=== PATIENT | female | born 1965 | race Caucasian/White ===

== ENCOUNTER → 2017-12-07 | Outpatient (CLI) | payer OTHER ==
[~2017-12-07] MED LIST: HYDROCODON-ACE1 EAC7 PO; NOHOMEMEDICATIONS
== END ==
LOC: M.RAD 09:14
DX: Z12.31 Encounter for screening mammogram for malignant neoplasm of breast (principal)

== ENCOUNTER → 2018-12-06 | Outpatient (CLI) | payer OTHER | LOC: M.RAD 10:29 | DX: Z12.31 Encounter for screening mammogram for malignant neoplasm of breast (principal) ==

== ENCOUNTER → 2018-12-19 | Outpatient (CLI) | payer OTHER | LOC: M.ULTRA 09:25 | DX: R92.2 Inconclusive mammogram (principal); J06.9 Acute upper respiratory infection, unspecified; Z79.899 Other long term (current) drug therapy; M54.5 Low back pain; G89.29 Other chronic pain; Z72.89 Other problems related to lifestyle ==

== ENCOUNTER → 2019-04-24 | Outpatient (CLI) | payer OTHER ==
[2019-04-24 10:25] LABS: ABSOLUTE EOSINOPHILS 0.1 thou/uL (0.0-0.7); ABSOLUTE LYMPHOCYTES 2.3 thou/uL (0.8-5.3); ABSOLUTE MONOCYTES 0.4 thou/uL (0.0-1.2); ABSOLUTE NEUTROPHILS 4.7 thou/uL (1.6-8.1); BASOPHILS 0.6 %; EOSINOPHILS 1.2 %; HEMATOCRIT 40.2 % (37.0-47.0); HEMOGLOBIN 13.8 gm/dL (12.0-15.0); LYMPHOCYTES 31.2 %; MCHC 34.3 g/dL (28.0-37.0); MCV 90.4 fL (80.0-100.0); MONOCYTES 4.8 %; MPV 7.5 fl. (7.2-11.1); NUCLEATED RBCS 0 /100WBC; PLATELET COUNT* 302 thou/uL (150-400); POLYS 62.2 %; RBC 4.45 mil/uL (4.20-5.00); RDW-CV 12.4 % (10.5-14.5); WBC 7.5 thou/uL (4.0-11.0)
[2019-04-24 10:41] LABS: CALCIUM 9.4 mg/dL (8.5-10.1); CREATININE 0.8 mg/dL (0.6-1.3); TOTAL BILIRUBIN 0.2 mg/dL (<0.1-1.0); TOTAL PROTEIN 8.2 g/dL (6.4-8.2)
[2019-04-24 11:27] LABS: ESR (SEDRATE) 20 mm/hr (0-30)
== END ==
LOC: M.LAB 10:06
PROVIDERS: Family Medicine
DX: G44.52 New daily persistent headache (NDPH) (principal); E01.0 Iodine-deficiency related diffuse (endemic) goiter

== ENCOUNTER → 2019-04-26 | Outpatient (CLI) | payer OTHER | LOC: M.CT 08:29 | DX: J34.89 Other specified disorders of nose and nasal sinuses (principal); J34.2 Deviated nasal septum ==

== ENCOUNTER → 2019-05-10 | Outpatient (CLI) | payer OTHER | LOC: M.ULTRA 14:23 | DX: E01.0 Iodine-deficiency related diffuse (endemic) goiter (principal) ==

== ENCOUNTER 2019-08-11 12:41 | Emergency (ER) | payer OTHER ==
[~2019-08-11] VITALS: Ht 157.5 cm; Wt 63.5 kg
[2019-08-11 12:54] VITALS: BP 149/88
[2019-08-11 13:06] LABS: INFLUENZA A ANTIGEN Positive (Negative); INFLUENZA B ANTIGEN Negative (Negative)
== END 2019-08-11 13:28 | disposition home or self-care (01) ==
LOC: M.ERS 12:41
PROVIDERS: Family Medicine
DX: J10.1 Influenza due to other identified influenza virus with other respiratory manifestations (principal); M13.821 Other specified arthritis, right elbow

== ENCOUNTER → 2019-11-19 | Outpatient (CLI) | payer OTHER | LOC: M.RAD 10:23 | DX: Z12.31 Encounter for screening mammogram for malignant neoplasm of breast (principal) ==

== ENCOUNTER → 2020-12-01 | Outpatient (CLI) | payer OTHER | LOC: M.RAD 11:06 | PROVIDERS: ATTEND Family Medicine | DX: Z12.31 Encounter for screening mammogram for malignant neoplasm of breast (principal) ==

== ENCOUNTER → 2021-05-18 | Outpatient (CLI) | payer OTHER ==
[2021-05-18 08:26] LABS: ABSOLUTE EOSINOPHILS 0.2 thou/uL (0.0-0.7); ABSOLUTE LYMPHOCYTES 2.5 thou/uL (0.8-5.3); ABSOLUTE MONOCYTES 0.4 thou/uL (0.0-1.2); ABSOLUTE NEUTROPHILS 4.3 thou/uL (1.6-8.1); BASOPHILS 0.3 %; EOSINOPHILS 2.4 %; HEMATOCRIT 40.9 % (37.0-47.0); LYMPHOCYTES 33.5 %; MCH 30.9 pg (26.0-34.0); MCHC 34.3 g/dL (28.0-37.0); MCV 89.9 fL (80.0-100.0); MONOCYTES 5.9 %; NUCLEATED RBCS 0 /100WBC; PLATELET COUNT* 278 thou/uL (150-400); POLYS 57.9 %; RBC 4.55 mil/uL (4.20-5.00); RDW-CV 12.4 % (10.5-14.5); WBC 7.4 thou/uL (4.0-11.0)
[2021-05-18 08:42] LABS: ALBUMIN 4.1 g/dL (3.4-5.0); ALKALINE PHOSPHATASE 126 U/L (46-116); ANION GAP 9 mmol/L (7-16); BUN 12 mg/dL (7-18); CALCIUM 9.4 mg/dL (8.5-10.1); CHLORIDE 104 mmol/L (98-107); CHOLESTEROL 226 mg/dL (<200); CO2 28 mmol/L (21-32); CREATININE 0.9 mg/dL (0.6-1.3); GLUCOSE 95 mg/dL (70-99); HDL CHOLESTEROL 58 mg/dL (>40); LDL CHOLESTEROL 136 mg/dL (<100); SGOT 25 U/L (15-37); SGPT 37 U/L (30-65); SODIUM 141 mmol/L (136-145); TC:HDL 3.9 Ratio (Not establshd); TOTAL BILIRUBIN 0.3 mg/dL (<0.1-1.0); TOTAL PROTEIN 8.6 g/dL (6.4-8.2); TRIGLYCERIDE 164 mg/dL (<150); VLDL 33 mg/dL (<40)
[2021-05-18 08:45] LABS: SERUM ASSESSMENT Clear
== END ==
LOC: M.LAB 08:04
PROVIDERS: ATTEND Family Medicine
DX: Z00.00 Encounter for general adult medical examination without abnormal findings (principal); E04.1 Nontoxic single thyroid nodule; R77.9 Abnormality of plasma protein, unspecified

== ENCOUNTER → 2021-05-20 | Outpatient (CLI) | payer OTHER | LOC: M.ULTRA 07:30 | PROVIDERS: ATTEND Family Medicine | DX: E04.1 Nontoxic single thyroid nodule (principal) ==

== ENCOUNTER → 2021-05-27 | Outpatient (CLI) | payer OTHER | LOC: M.LAB 11:22 | PROVIDERS: ATTEND Internal Medicine Gastroenterology | DX: Z01.812 Encounter for preprocedural laboratory examination (principal); Z20.822 Contact with and (suspected) exposure to COVID-19 ==

== ENCOUNTER → 2021-07-02 | Outpatient (CLI) | payer OTHER | LOC: M.LAB 14:52 | PROVIDERS: ATTEND Internal Medicine Gastroenterology | DX: Z01.812 Encounter for preprocedural laboratory examination (principal); Z20.822 Contact with and (suspected) exposure to COVID-19 ==